=== PATIENT | female | born 1945 | race Caucasian/White ===

== ENCOUNTER 2016-03-13 10:53 | Observation (INO) | payer MEDICARE, OTHER ==
[~2016-03-13] VITALS: Ht 172.7 cm; Wt 63.2 kg
[~2016-03-13 10:53] MED LIST: BISA10SU8 PR; CALTCHW4 PO; CLOT10; DOCU50SY2 PO; FLEEENE3 RE; FOLI1 PO; LORTA5 PO; MAGN1SOL2 PO; MECL-62 PO; MILKSUS5; NYST100010 TOP; OXYB5TAB PO; PREPCRE RECTAL; PROM25TA5 PO; TRAM50TA PO; VITA250L PO; ZOFR4TAB3 SL; [UNRECOGNIZED DRUG - CODE] PO
[2016-03-13 10:59] VITALS: BP 122/58; PULSE 67; RESP 16; TEMP 98; O2SAT 95
--- NOTE | 2016-03-13 11:12 | PD ---
HPI Chief Complaint: Altered Mental Status Time Seen by Provider: 11:11 Travel History International Travel<30 days: No Contact w/Intl Traveler<30days: No Traveled to known affect area: No History of Present Illness HPI 70-year-old female brought in by ambulance from a local nursing facility, with history of Alzheimer's disease, has had a notable change in mental status. Both daughters came in with the patient who state that several days ago the patient was up and functioning, going to meals, and active, despite her baseline dementia. Patient states 2 days ago she did not want to get out of bed, had a fever, and did not want to eat or drink at that time. Patient has not been complaining of any pain. She has no cough, no vomiting, diarrhea, or complaints of abdominal pain. Labs were performed yesterday which I reviewed, showing no significant white blood cell count, but she did have an obvious urinary tract infection. It is unclear whether she has been treated for this. Patient does have dementia and is unsure why she is here. Patient has multiple allergies including amitriptyline, codeine, contrast dye, Novocain , iohexol, pentazocine, and procaine. PFSH Past Medical History Arthritis: Yes Blood Disorders: No Cancer: Yes (LUNG CANCER 1980s) Diabetes: Yes Diminished Hearing: No Diverticulitis: Yes (IN PAST) Deep Vein Thrombosis: Yes Gastrointestinal Disorders: Yes (CHRONIC CONSTIPATION ) Kidney Stones: Yes Musculoskeletal: Yes (TORN R GLUTEAL MUSCLE, R HAMSTRING STRAIN ) Menopausal: Yes Past Surgical History Abdominal Surgery: Yes (COLON RESECTION) Appendectomy: Yes Section: Yes Cholecystectomy: Yes Gynecologic Surgery: Yes Hysterectomy: Yes Thoracic Surgery: Yes (LEFT UPPER LUNG LOBECTOMY) Tonsillectomy: Yes Social History Alcohol Use: Yes (WINE OCCASSIONALLY) Tobacco Use: No Substance Use: No Allergies-Medications (Allergen,Severity, Reaction): Coded Allergies: Amitriptyline (Verified Allergy, Severe, 01/09/14) DISORIENTATION Codeine (Verified Allergy, Severe, Nausea/Vomiting, 01/09/14) VOMITING, DIZZY Dye, Prep (Verified Allergy, Severe, Hives, 01/09/14) "CONSTRAST DYE" Pentazocine (Verified Allergy, Severe, 01/09/14) DISORIENTATION Procaine (Verified Allergy, Severe, 01/09/14) INCREASED HR, HIVES Iohexol (OMNIPAQUE) (Unverified Allergy, Unknown, 01/09/14) Uncoded Allergies: CODIENE,VOMITING - DIZZY:CONSTRAST DYE,NOVACAIN >HR,HIVES (Allergy, Unknown , 11/13/02) NKA (Allergy, Unknown, 11/13/02) Reported Meds & Prescriptions Reported Meds & Active Scripts Active Reported Magic Mouthwash Adult Liq (Multi-Ingredient Mouthwash/Gargle) 120 Ml Susp 5 Ml SWISH-SWAL ACHS Each 5 mL contains: Nystatin 200,000 units, Diphenhydramine 4.25 mg, Viscous Lidocaine 10 mg, Henry syrup 0.8 mL Enulose Liq (Lactulose (Encephalopathy) Liq) 10 Gm/15 Ml Soln 15 Ml Nortriptyline (Nortriptyline HCl) 25 Mg Cap 25 Mg PO HS Miralax Powder (Polyethylene Glycol 3350 Powder) 17 Gm Powd 17 Gm PO DAILY Mix and dissolve one measuring cap-ful (17 grams) in water or juice. Calcium 600+D (Calcium Carbonate-Cholecalciferol) 600-800 Mg-Unit Tab 1 Tab PO BID Citrate of Magnesia Liq (Magnesium Citrate) 300 Ml Liq 300 Ml PO DIRECTED Bisac-Evac Supp (Bisacodyl) 10 Mg Supp 10 Mg RECTAL DAILY PRN Milk of Magnesia Liq (Magnesium Hydroxide) 400 Mg/5 Ml Susp 30 Ml PO DAILY PRN Docusate Sodium 100 Mg Cap 100 Mg PO BID Preparation H Topical ([place]-Gteuxngcccrbl-Xeumxbtd Topical) 1-0.25-14.4-15 % Cre 1 Applic RECTAL QID PRN Vitamin B-12 (Cyanocobalamin) 500 Mcg Tab 500 Mcg PO DAILY Nystatin Topical 100,000 unit/gm Oint 1 Applic TOPICAL Q12HR Meclizine 25 (Meclizine HCl) 25 Mg Tab 1 Tab PO DAILY Vesicare (Solifenacin) 5 Mg Tab 5 Mg PO DAILY Folic Acid 5 Mg Cap 1 Mg PO DAILY Ondansetron (Ondansetron HCl) 4 Mg Tab Tramadol (Tramadol HCl) 50 Mg Tab 50 Mg PO Q6H PRN Hydrocodone-Acetaminophen 5-325 mg Tab 1 Tab PO Q6H PRN Review of Systems ROS Limitations: Altered Mental Status, Other: (dementia.) Except as stated in HPI: all other systems reviewed are Neg General / Constitutional: No: Fever Eyes: No: Visual changes HENT: No: Headaches Cardiovascular: No: Chest Pain or Discomfort Respiratory: No: Shortness of Breath Gastrointestinal: No: Abdominal Pain Genitourinary: No: Dysuria Musculoskeletal: No: Pain Skin: No Rash Neurologic: No: Weakness Psychiatric: No: Depression Endocrine: No: Polydipsia Hematologic/Lymphatic: No: Easy Bruising Physical Exam Narrative GENERAL: Patient is alert and in no acute distress. SKIN: Warm and dry. Patient is normal color. A poor turgor, With tenting noted. HEAD: Atraumatic. Normocephalic. EYES: Pupils equal and round. No scleral icterus. No injection or drainage. ENT: No nasal bleeding or discharge. Mucous membranes pink and very dry. Tongue is dry and appears erythematous. No obvious signs of thrush. Airway is patent. NECK: Trachea midline. No JVD. Supple nontender. CARDIOVASCULAR: Regular rate and rhythm. No murmurs appreciated. RESPIRATORY: No accessory muscle use. Clear to auscultation. Breath sounds equal bilaterally. GASTROINTESTINAL: Abdomen soft, non-tender, nondistended. Hepatic and splenic margins not palpable. MUSCULOSKELETAL: Extremities without clubbing, cyanosis, or edema. No obvious deformities. NEUROLOGICAL: Awake and alert. No obvious cranial nerve deficits. Motor grossly within normal limits. Five out of 5 muscle strength in the arms and legs. Normal speech. PSYCHIATRIC: Appropriate mood and affect; insight and judgment normal. Data Data Last Documented VS Vital Signs Date Time Temp Pulse Resp B/P Pulse Ox O2 Delivery O2 Flow Rate FiO2 03/13/16 11:30 68 20 125/60 94 Room Air 03/13/16 10:59 98.0 Orders Electrocardiogram (03/13/16 11:22) Complete Blood Count With Diff (03/13/16 11:22) Comprehensive Metabolic Panel (03/13/16 11:22) Thyroid Stimulating Hormone (03/13/16 11:22) Chest, Single Ap (03/13/16 11:22) Blood Glucose (03/13/16 11:22) Ecg Monitoring (03/13/16 11:22) Iv Access Insert/Monitor (03/13/16 11:22) Oximetry (03/13/16 11:22) Ceftriaxone Inj (Rocephin Inj) (03/13/16 11:30) Sodium Chloride 0.9% Flush (Ns Flush) (03/13/16 11:30) Sodium Chlor 0.9% 1000 Ml Inj (Ns 1000 M (03/13/16 11:22) Diet Regular Basic (03/13/16 Lunch) Ct Brain W/O Iv Contrast(Rout) (03/13/16 11:32) Acetamin-Hydrocod 325-5 Mg (Frost 5-325 (03/13/16 13:15) Sodium Chlor 0.9% 1000 Ml Inj (Ns 1000 M (03/13/16 13:45) Admit Order (Ed Use Only) (03/13/16 14:26) Labs Laboratory Tests Test 03/13/16 11:50 White Blood Count 5.8 TH/MM3 Red Blood Count 4.04 MIL/MM3 Hemoglobin 13.2 GM/DL Hematocrit 39.8 % Mean Corpuscular Volume 98.6 FL Mean Corpuscular Hemoglobin 32.6 PG Mean Corpuscular Hemoglobin 33.1 % Concent Red Cell Distribution Width 14.8 % Platelet Count 85 TH/MM3 Mean Platelet Volume 9.2 FL Neutrophils (%) (Auto) 69.6 % Lymphocytes (%) (Auto) 13.6 % Monocytes (%) (Auto) 13.1 % Eosinophils (%) (Auto) 3.3 % Basophils (%) (Auto) 0.4 % Neutrophils # (Auto) 4.1 TH/MM3 Lymphocytes # (Auto) 0.8 TH/MM3 Monocytes # (Auto) 0.8 TH/MM3 Eosinophils # (Auto) 0.2 TH/MM3 Basophils # (Auto) 0.0 TH/MM3 CBC Comment AUTO DIFF Differential Total Cells 100 Counted Neutrophils % (Manual) 75 % Band Neutrophils % 7 % Lymphocytes % 10 % Monocytes % 6 % Eosinophils % 2 % Neutrophils # (Manual) 4.8 TH/MM3 Differential Comment FINAL DIFF MANUAL Platelet Estimate LOW Platelet Morphology Comment NORMAL Red Cell Morphology Comment NORMAL Sodium Level 134 MEQ/L Potassium Level 5.0 MEQ/L Chloride Level 101 MEQ/L Carbon Dioxide Level 25.4 MEQ/L Anion Gap 8 MEQ/L Blood Urea Nitrogen 14 MG/DL Creatinine 0.96 MG/DL Estimat Glomerular Filtration 57 ML/MIN Rate Random Glucose 97 MG/DL Calcium Level 8.6 MG/DL Total Bilirubin 0.8 MG/DL Aspartate Amino Transf 64 U/L (AST/SGOT) Alanine Aminotransferase 33 U/L (ALT/SGPT) Alkaline Phosphatase 63 U/L Total Protein 8.2 GM/DL Albumin 2.8 GM/DL Thyroid Stimulating Hormone 4.480 uIU/ML 3rd Gen [facility] Medical Decision Making Medical Screen Exam Complete: Yes Emergency Medical Condition: Yes Medical Record Reviewed: Yes Differential Diagnosis Change in mental status. Intracranial bleed. Electrolyte imbalance. Dehydration. Urinary tract infection. Urosepsis. Renal insufficiency. Narrative Course Patient is felt to be medically stable at time of exam. CT of the head and chest x-ray is ordered. EKG is ordered. Labs ordered including CBC, CMP, TSH, but no urinalysis as I know she has a UTI. This was performed yesterday. Culture is pending. IV access was obtained patient is given 1000 mL's normal saline bolus. Patient is given 1 g Rocephin IV. Regular soft diet is ordered. Patient did improve after her first liter of normal saline bolus, in terms of her overall demeanor. Patient was able to be fed some ice cream, but could not eat anything significant. Patient is monitored here in the department and a second bolus of normal saline 1000 mL was given. CBC is essentially unremarkable without significant leukocytosis, CMP is normal , TSH is slightly elevated. Due to the patient's overall weakness and change in mental status, I feel she should be brought in for observation. Call was placed to Dr. Carreon her PCP who will admit the patient to observation status, and she will continue to be treated for her UTI and observed. Diagnosis Primary Impression: UTI (urinary tract infection) Qualified Code: N30.00 - Acute cystitis without hematuria Additional Impressions: Dehydration Weak Admitting Information Admitting Physician Requests: Observation Zaid Delgadillo Mar 13, 2016 11:12
[2016-03-13] MEDS ORDERED: SODIUM CHLOR 0.9% 1000 ML INJ 1,000 ML IV SCH (11:22)
[2016-03-13 11:30] VITALS: BP 125/60; PULSE 68; RESP 20; O2SAT 94
[2016-03-13] MEDS ORDERED: SODIUM CHLORIDE 0.9% FLUSH 5 ML FLUSH IVF PRN (11:30)
[2016-03-13] MEDS ORDERED: cefTRIAXone INJ 1,000 MG in SODIUM CHLORIDE 0.9% INJ 100 ML IV ONE (11:30)
[2016-03-13 12:22] LABS: AUTOMATED NEUTROPHIL # 4.1 TH/MM3 (1.8-7.7); BASOPHIL % 0.4 % (0.0-2.0); EOSINOPHIL # 0.2 TH/MM3 (0-0.4); EOSINOPHIL % 3.3 % (0.0-4.0); HEMATOCRIT 39.8 % (35.0-46.0); LYMPH % 13.6 % (9.0-44.0); LYMPHOCYTE # 0.8 TH/MM3 (1.0-4.8); MEAN CELL VOLUME 98.6 FL (80.0-100.0); MEAN CORPUSCULAR HEMOGLOBIN 32.6 PG (27.0-34.0); MEAN CORPUSCULAR HGB CONC 33.1 % (32.0-36.0); MONO % 13.1 % (0.0-8.0); NEUT % 69.6 % (16.0-70.0); PLATELET COUNT 85 TH/MM3 (150-450); RED BLOOD COUNT 4.04 MIL/MM3 (4.00-5.30); RED CELL DISTRIBUTION WIDTH 14.8 % (11.6-17.2); WHITE BLOOD COUNT 5.8 TH/MM3 (4.0-11.0)
--- NOTE | 2016-03-13 12:27 | RADRPT ---
EXAM DATE/TIME: 03/13/2016 11:57 [facility] COMPARISON: No previous studies available for comparison. INDICATIONS : Altered mental status. RADIATION DOSE: 56.77 CTDIvol (mGy) MEDICAL HISTORY : Carcinoma, lung. Diabetes mellitus type 2. Deep venous thrombosis. SURGICAL HISTORY : Tonsillectomy. Lobectomy. ENCOUNTER: Initial ACUITY: 1 day PAIN SCALE: Non-responsive LOCATION: cranial TECHNIQUE: Multiple contiguous axial images were obtained of the head. Using automated exposure control and adj ustment of the mA and/or kV according to patient size, radiation dose was kept as low as reasonably a chievable to obtain optimal diagnostic quality images. FINDINGS: Compare January 2014. No acute intracranial hemorrhage, mass or midline shift. No hydrocephalus. Sta ble remote lacunar infarct left basal ganglia. Numerous lucencies in the calvarium most characteristi c of myeloma or metastatic disease. CONCLUSION: 1. No acute intracranial abnormalities. Multiple small lytic changes in the calvarium most characteri stic of myeloma or metastatic disease. Chicho Anderson MD on March 13, 2016 at 12:22 Board Certified Radiologist. This report was verified electronically.
[2016-03-13 12:28] LABS: HEMO FLAGS AUTO DIFF
--- NOTE | 2016-03-13 12:31 | RADRPT ---
EXAM DATE/TIME: 03/13/2016 11:25 [facility] COMPARISON: No previous studies available for comparison. INDICATIONS : Fever, cough MEDICAL HISTORY : Renal calculi. Diverticulitis. SURGICAL HISTORY : Cholecystectomy. Hysterectomy. ENCOUNTER: Initial ACUITY: 3 days PAIN SCORE: Non-responsive. LOCATION: Bilateral chest FINDINGS: A single view of the chest demonstrates minimal basilar atelectasis or infiltrate. No significant eff usion. No pneumothorax. Surgical clips left hilar region. CONCLUSION: 1. Mild basilar density bilaterally. Findings most characteristic of atelectasis versus early broncho pneumonia. Chicho Anderson MD on March 13, 2016 at 12:27 Board Certified Radiologist. This report was verified electronically.
[2016-03-13 12:49] LABS: ALKALINE PHOSPHATASE 63 U/L (45-117); ALT (GPT) 33 U/L (10-53); ANION GAP 8 MEQ/L (5-15); AST (GOT) 64 U/L (15-37); BICARBONATE 25.4 MEQ/L (21.0-32.0); CHLORIDE 101 MEQ/L (98-107); GLOMERULAR FILTRATION RATE 57 ML/MIN (>89); SODIUM (NA) 134 MEQ/L (136-145); TOTAL BILIRUBIN ADULT 0.8 MG/DL (0.2-1.0)
[2016-03-13 12:51] LABS: BLOOD UREA NITROGEN 14 MG/DL (7-18)
[2016-03-13] MEDS ORDERED: ACETAMINOPHEN/HYDROcodone 325 MG/5 MG TAB PO ONE (13:15)
[2016-03-13 13:30] LABS: BANDS 7 % (0-6); EOSINOPHILS 2 % (0-4); NEUTROPHIL # MANUAL DIFF 4.8 TH/MM3 (1.8-7.7); PLATELET ESTIMATE SMEAR LOW (NORMAL); PLATELET MORPHOLOGY NORMAL (NORMAL); POLYS (SEG NEUTROPHILS) 75 % (16-70); SCAN/DIFF FINAL DIFF MANUAL; WBC DIFF SAMPLE 100
[2016-03-13] MEDS ORDERED: SODIUM CHLOR 0.9% 1000 ML INJ 1,000 ML IV ONE (13:45)
[2016-03-13] MEDS ORDERED: FOLI5CAP PO (14:00)
[2016-03-13] MEDS ORDERED: MECL1TAB42 PO (14:00)
[2016-03-13] MEDS ORDERED: HYDR-3516 PO (14:00)
[2016-03-13] MEDS ORDERED: VESI5TAB PO (14:00)
[2016-03-13] MEDS ORDERED: ONDA1TAB16 (14:00)
[2016-03-13] MEDS ORDERED: TRAM50TA PO (14:00)
[2016-03-13] MEDS ORDERED: MILKSUS PO (14:16)
[2016-03-13] MEDS ORDERED: NORT25CA PO (14:16)
[2016-03-13] MEDS ORDERED: DOCU100C PO (14:16)
[2016-03-13] MEDS ORDERED: MAGN1SOL2 PO (14:16)
[2016-03-13] MEDS ORDERED: VITA500T4 PO (14:16)
[2016-03-13] MEDS ORDERED: CALC1TAB37 PO (14:16)
[2016-03-13] MEDS ORDERED: PREPCRE RECTAL (14:16)
[2016-03-13] MEDS ORDERED: NYST100084 TOPICAL (14:16)
[2016-03-13] MEDS ORDERED: BISA10R RECTAL (14:16)
[2016-03-13] MEDS ORDERED: LACT10SO47 (14:16)
[2016-03-13] MEDS ORDERED: MAGICADU2 SWISH-SWAL (14:16)
[2016-03-13] MEDS ORDERED: MIRA33504 PO (14:16)
[2016-03-13] MEDS ORDERED: SODIUM CHLORIDE 0.9% FLUSH 5 ML FLUSH FLUSH PRN (15:00)
[2016-03-13] MEDS ORDERED: BISACODYL 10 MG SUPP RECTAL PRN (15:00)
[2016-03-13] MEDS ORDERED: ONDANSETRON HCL 4 MG/2 ML VIAL IVP PRN (15:00)
[2016-03-13] MEDS ORDERED: PROCHLORPERAZINE 25 MG SUPP PR PRN (15:00)
[2016-03-13] MEDS ORDERED: MAGNESIUM HYDROXIDE SUSP 30 ML CUP PO PRN (15:00)
[2016-03-13] MEDS ORDERED: traMADol HCL 50 MG TAB PO PRN (15:00)
[2016-03-13] MEDS ORDERED: SENNOSIDES 8.6 MG TAB PO PRN (15:00)
[2016-03-13] MEDS ORDERED: ACETAMINOPHEN 325 MG TAB PO PRN (15:00)
[2016-03-13] MEDS ORDERED: NALOXONE HCL 0.4 MG/ML AMP IV PRN (15:00)
[2016-03-13] MEDS ORDERED: ACETAMINOPHEN/HYDROcodone 325 MG/5 MG TAB PO PRN (15:00)
[2016-03-13] MEDS ORDERED: ENALAPRILAT 2.5 MG/2 ML VIAL IV PUSH PRN (15:15)
[2016-03-13] MEDS ORDERED: cloNIDine HCL 0.1 MG TAB PO PRN (15:15)
[2016-03-13] MEDS ORDERED: ENOXAPARIN SODIUM 40 MG/0.4 ML SYRINGE SQ SCH (15:30)
[2016-03-13] MEDS ORDERED: PREPARATION H RECTAL PRN (16:00)
[2016-03-13] MEDS: NYSTAT/DIPHENHY/LIDO MOUTHWASH (Adult) 120ML SWISH-SWAL SCH (16:34)
[2016-03-13] MEDS: SODIUM CHLOR 0.9% 1000 ML INJ 1,000 ML IV SCH (16:34)
[2016-03-13 18:50] VITALS: BP 145/64; PULSE 72; RESP 16; O2SAT 97
--- NOTE | 2016-03-13 22:20 | EKG ---
Date Performed: 03/13/2016 Time Performed: 12:21:42 PTAGE: 70 years EKG: Sinus rhythm PATTERN CONSISTENT WITH POSSIBLE PULMONARY DISEASE LEFT ANTERIOR FASCICULAR BLOCK MINIMAL VOLTAGE CR ITERIA FOR LVH, CONSIDER NORMAL VARIANT ABNORMAL ECG PREVIOUS TRACING : 04/20/2015 07.51 Since previous tracing, no significant change noted DOCTOR: Anival Orellana Interpretating Date/Time 03/13/2016 22:18:26
[2016-03-14] VITALS (9 sets, daily range): BP systolic 121–158; BP diastolic 57–85; PULSE 62–95; RESP 16–20; TEMP 97.2–98.9; O2SAT 93–98
[2016-03-14] MEDS: DOCUSATE SODIUM 100 MG CAP PO SCH ×3 (01:10→21:15)
[2016-03-14] MEDS: NYSTAT/DIPHENHY/LIDO MOUTHWASH (Adult) 120ML SWISH-SWAL SCH ×5 (01:24→21:15)
[2016-03-14] MEDS: NYSTATIN 100,000 U/GM OINT 15 GM TUBE TOPICAL SCH ×3 (01:26→21:15)
[2016-03-14] MEDS: SODIUM CHLORIDE 0.9% FLUSH 5 ML FLUSH FLUSH SCH ×3 (01:29→21:00)
[2016-03-14] MEDS: SODIUM CHLOR 0.9% 1000 ML INJ 1,000 ML IV SCH ×2 (02:00→21:15)
[2016-03-14] MEDS: LEVOTHYROXINE SODIUM 25 MCG TAB PO SCH (06:11)
[2016-03-14 08:12] LABS: AUTOMATED NEUTROPHIL # 1.4 TH/MM3 (1.8-7.7); BASOPHIL % 0.6 % (0.0-2.0); EOSINOPHIL # 0.2 TH/MM3 (0-0.4); EOSINOPHIL % 7.7 % (0.0-4.0); HEMATOCRIT 32.7 % (35.0-46.0); LYMPH % 29.5 % (9.0-44.0); LYMPHOCYTE # 0.8 TH/MM3 (1.0-4.8); MEAN CELL VOLUME 98.2 FL (80.0-100.0); MEAN CORPUSCULAR HGB CONC 33.6 % (32.0-36.0); NEUT % 50.2 % (16.0-70.0); PLATELET COUNT 61 TH/MM3 (150-450); RED BLOOD COUNT 3.33 MIL/MM3 (4.00-5.30); RED CELL DISTRIBUTION WIDTH 14.9 % (11.6-17.2); WHITE BLOOD COUNT 2.7 TH/MM3 (4.0-11.0)
[2016-03-14 08:13] LABS: HEMO FLAGS AUTO DIFF
--- NOTE | 2016-03-14 08:19 | HHI.HP ---
History of Present Illness Primary Care Physician Ramone Carreon MD Admission Diagnosis UTI/Alterered Mental Status/Dehydration Diagnoses: (1) Weak (2) UTI (urinary tract infection) (3) Dehydration History of Present Illness 70 y CF, HARI RESIDENT. LAST WEEK GENERAL DECLINE NOTED. TREATED FOR UTI. PT BECAME WEAKER THE LAST COUPLE OF DAYS. PT STARTED POCKETING PILLS AND HAD MINIMAL PO INTAKE DUE TO LETHARGY. I SPOKE WITH THE DGTR AND SHE REQUESTED AGGRESSIVE TX AND I THUS TRANSFERRED HER TO THE MAIN [facility]. SHE HAS NOW BEEN TRANSFERRED TO [facility]. PT APPEARS ALMOST TO BASELINE NOW. C/O HARSH COUGH AND STILL VERY WEAK. Review of Systems ROS Limitations: Clinical Condition, Altered Mental Status, Uncooperative, Hearing Impaired, Poor Historian Other - 14 POINT ROS EXCEPT ABOVE. Past Family Social History Allergies: Coded Allergies: Amitriptyline (Verified Allergy, Severe, 01/09/14) DISORIENTATION Codeine (Verified Allergy, Severe, Nausea/Vomiting, 01/09/14) VOMITING, DIZZY Dye, Prep (Verified Allergy, Severe, Hives, 01/09/14) "CONSTRAST DYE" Pentazocine (Verified Allergy, Severe, 01/09/14) DISORIENTATION Procaine (Verified Allergy, Severe, 01/09/14) INCREASED HR, HIVES Iohexol (OMNIPAQUE) (Unverified Allergy, Unknown, 01/09/14) Uncoded Allergies: CODIENE,VOMITING - DIZZY:CONSTRAST DYE,NOVACAIN >HR,HIVES (Allergy, Unknown , 11/13/02) NKA (Allergy, Unknown, 11/13/02) Past Medical History ALZ LUNG CA HTN Past Surgical History NC Reported Medications Current Medications Medications (Trade) Dose Ordered Sig/Brian Route Start Time Stop Time Status Last Admin (Dulcolax Supp) 10 mg DAILY PRN RECTAL 03/13/16 15:00 (Colace) 100 mg BID PO 03/13/16 21:00 03/14/16 01:10 ([place] 5-325 Mg) 1 tab Q6H PRN PO 03/13/16 15:00 03/14/16 01:21 (Milk Of Magnesia Liq) 30 ml DAILY PRN PO 03/13/16 15:00 03/14/16 01:22 (Mycostatin Oint) 1 applic Q12HR TOPICAL 03/13/16 21:00 03/14/16 01:26 (Magic Mouthwash Adult Liq) 5 ml ACHS SWISH-SWAL 03/13/16 16:00 03/14/16 06:11 (Miralax) 17 gm DAILY PO 03/14/16 09:00 (Ultram) 50 mg Q6H PRN PO 03/13/16 15:00 Patient Own Medication PT OWN MED: PREPARATION H CR... QID PRN RECTAL 03/13/16 16:00 Hold (NS 1000 ml Inj) 1,000 ml @ 100 mls/hr Q10H IV 03/13/16 16:00 03/13/16 16:34 (NS Flush) 2 ml UNSCH PRN FLUSH 03/13/16 15:00 (NS Flush) 2 ml BID FLUSH 03/13/16 21:00 03/14/16 01:29 (Tylenol) 650 mg Q4H PRN PO 03/13/16 15:00 (Zofran Inj) 4 mg Q6H PRN IVP 03/13/16 15:00 (Compazine Supp) 25 mg Q12H PRN WV 03/13/16 15:00 (Senokot) 17.2 mg Q12H PRN PO 03/13/16 15:00 (Lovenox Inj) 40 mg Q24H SQ 03/13/16 15:30 03/13/16 16:33 (Narcan Inj) 0.4 mg UNSCH PRN IV 03/13/16 15:00 (Catapres) 0.1 mg Q6H PRN PO 03/13/16 15:15 Enalaprilat 2.5 mg 2.5 mg Q6H PRN IV PUSH 03/13/16 15:15 (Rocephin Inj/NS Inj) 100 ml @ 200 mls/hr Q24H IV 03/14/16 12:00 (Synthroid) 25 mcg DAILY@0600 PO 03/14/16 06:00 03/14/16 06:11 Family History NC Social History SNF RES; NO E/T/D; DISABLED Physical Exam Vital Signs Vital Signs Date Time Temp Pulse Resp B/P Pulse Ox O2 Delivery O2 Flow Rate FiO2 03/14/16 04:12 97.9 88 16 130/81 93 03/14/16 00:12 98.9 73 18 158/73 94 03/13/16 18:50 72 16 145/64 97 Room Air 03/13/16 11:30 68 20 125/60 94 Room Air 03/13/16 10:59 98.0 67 16 122/58 95 Physical Exam GENERAL: This is a chronically ill appearing, CF, in no apparent distress. SKIN: No rashes, ecchymoses or lesions. Cool and dry. HEAD: Atraumatic. Normocephalic. No temporal or scalp tenderness. EYES: Pupils equal round and reactive. Extraocular motions intact. No scleral icterus. No injection or drainage. ENT: Nose without bleeding, purulent drainage or septal hematoma. Throat without erythema, tonsillar hypertrophy or exudate. Uvula midline. Airway patent. NECK: Trachea midline. No JVD or lymphadenopathy. Supple, nontender, no meningeal signs. CARDIOVASCULAR: Regular rate and rhythm without murmurs, gallops, or rubs. RESPIRATORY: Clear to auscultation. Breath sounds equal bilaterally. No wheezes , rales, or rhonchi. However very harsh congested cough, poor effort. GASTROINTESTINAL: Abdomen soft, non-tender, nondistended. No hepato-splenomegaly , or palpable masses. No guarding. MUSCULOSKELETAL: Extremities without clubbing, cyanosis, or edema. No joint tenderness, effusion, or edema noted. No calf tenderness. Negative Homans sign bilaterally. NEUROLOGICAL: Awake and alert x 2. Cranial nerves II through XII intact. Motor and sensory grossly within normal limits. 1 out of 5 muscle strength in all muscle groups. Normal speech. Laboratory Laboratory Tests Test 03/13/16 11:50 White Blood Count 5.8 Red Blood Count 4.04 Hemoglobin 13.2 Hematocrit 39.8 Mean Corpuscular Volume 98.6 Mean Corpuscular Hemoglobin 32.6 Mean Corpuscular Hemoglobin 33.1 Concent Red Cell Distribution Width 14.8 Platelet Count 85 Mean Platelet Volume 9.2 Neutrophils (%) (Auto) 69.6 Lymphocytes (%) (Auto) 13.6 Monocytes (%) (Auto) 13.1 Eosinophils (%) (Auto) 3.3 Basophils (%) (Auto) 0.4 Neutrophils # (Auto) 4.1 Lymphocytes # (Auto) 0.8 Monocytes # (Auto) 0.8 Eosinophils # (Auto) 0.2 Basophils # (Auto) 0.0 CBC Comment AUTO DIFF Differential Total Cells 100 Counted Neutrophils % (Manual) 75 Band Neutrophils % 7 Lymphocytes % 10 Monocytes % 6 Eosinophils % 2 Neutrophils # (Manual) 4.8 Differential Comment FINAL DIFF MANUAL Platelet Estimate LOW Platelet Morphology Comment NORMAL Red Cell Morphology Comment NORMAL Sodium Level 134 Potassium Level 5.0 Chloride Level 101 Carbon Dioxide Level 25.4 Anion Gap 8 Blood Urea Nitrogen 14 Creatinine 0.96 Estimat Glomerular Filtration 57 Rate Random Glucose 97 Calcium Level 8.6 Total Bilirubin 0.8 Aspartate Amino Transf 64 (AST/SGOT) Alanine Aminotransferase 33 (ALT/SGPT) Alkaline Phosphatase 63 Total Protein 8.2 Albumin 2.8 Thyroid Stimulating Hormone 4.480 3rd Gen Result Diagram: 03/13/16 1150 03/13/16 1150 Imaging Last [address] 03/13/16 1132 Signed Impressions: Service Date/Time: Sunday, March 13, 2016 11:57 - CONCLUSION: 1. No acute intracranial abnormalities. Multiple small lytic changes in the calvarium most characteristic of myeloma or metastatic disease. Chicho Anderson MD Chest X-Ray 03/13/16 1122 Signed Impressions: Service Date/Time: Sunday, March 13, 2016 11:25 - CONCLUSION: 1. Mild basilar density bilaterally. Findings most characteristic of atelectasis versus early bronchopneumonia. Chicho Anderson MD Assessment and Plan Assessment and Plan AMS METABOLIC ENCEPHALOPATHY DUE TO UTI AND HCAP QUESTION METASTATIC DISEASE NOTED ON HEAD CT, ALSO PRESENT ON OLD HEAD CT'S, HX LUNG CA HCAP UTI LUNG CA WITH HISTORY OF LOBECTOMY DVT HISTORY THROMBOCYTOPENIA MODERATE DEMENTIA SNF RESIDENT PLAN: IV ABX IVF MRI BRAIN CAROTID DOPPLERS ONCOLOGY CONSULT STOP LOVENOX DUE TO THROMBOCYTOPENIA SCD'S TEDS AM LABS FOLLOWUP BLOOD AND URINE CULTURES OBS ADMIT Problem Qualifiers (1) UTI (urinary tract infection): Qualified Code: N30.00 - Acute cystitis without hematuria Ramone Carreon MD Mar 14, 2016 08:19
[2016-03-14 08:21] LABS: POTASSIUM 3.8 MEQ/L (3.5-5.1)
[2016-03-14] MEDS: POLYETHYLENE GLYCOL 17 GM PKG PO SCH (08:22)
[2016-03-14 08:24] LABS: BICARBONATE 24.7 MEQ/L (21.0-32.0)
[2016-03-14 08:38] LABS: SCAN/DIFF AUTO DIFF CONFIRMED
[2016-03-14] MEDS: RESP: ALBUTEROL 2.5 MG/IPRATROPIUM 0.5 MG NEB (SCH) NEB ×3 (11:18→19:49)
[2016-03-14] MEDS ORDERED: GADODIAMIDE PF 287 MG/ML 10 ML VIAL (for RAD MRI) IV ONE (13:00)
--- NOTE | 2016-03-14 13:30 | RADHPO ---
EXAM DATE/TIME: 03/14/2016 12:57 [facility] COMPARISON: No previous studies available for comparison. INDICATIONS : Altered mental status. Abnormal CT. CONTRAST: 10 cc Omniscan (gadodiamide) IV MEDICAL HISTORY : Metastatic, brain. Carcinoma, lung. SURGICAL HISTORY : Lobectomy. ENCOUNTER: Initial ACUITY: 1 day PAIN SCORE: 0/10 LOCATION: cranial TECHNIQUE: Multiplanar, multisequence MRI of the brain was performed both prior to and following the administrat ion of paramagnetic contrast. FINDINGS: There is mild central and cortical atrophy with dilatation of ventricular and sulcal spaces. There i s no parenchymal hemorrhage, mass lesion or extra-axial fluid collections appreciated. Posterior fossa is unremarkable. The calvarium is abnormal with minimal focal areas of abnormal marrow in the diploic space suspicious for process such as myeloma. Bony probable metastatic disease could have a similar appearance altho ugh ought to be much less likely. CONCLUSION: Abnormal calvarium as described above. Shaka Griffin MD FACR on March 14, 2016 at 13:26 Board Certified Radiologist. This report was verified electronically.
[2016-03-14] MEDS: AZITHROMYCIN INJ 500 MG in SODIUM CHLOR 0.9% 250 ML INJ 250 ML IV SCH (13:39)
[2016-03-14] MEDS: cefTRIAXone INJ 1,000 MG in SODIUM CHLORIDE 0.9% INJ 100 ML IV SCH (13:40)
--- NOTE | 2016-03-14 14:19 | RADHPO ---
EXAM DATE/TIME: 03/14/2016 13:39 [facility] COMPARISON: No previous studies available for comparison. INDICATIONS : Cerebrovascular accident. MEDICAL HISTORY : Deep venous thrombosis. Lung cancer. Arthritis. Radiation therapy. Chemotherapy. SURGICAL HISTORY : Tonsillectomy. Cholecystectomy. Appendectomy. Left upper lung lobectomy. Bowel resection. se ction. Hysterectomy. ENCOUNTER: Initial ACUITY: 1 day PAIN SCORE: 0/10 LOCATION: Bilateral neck PEAK SYSTOLIC VELOCITIES (cm/sec): ICA/CCA RATIO: Right: 1.2 Left: 1.0 ICA: Right: 100 Left: 78 CCA: Right: 86 Left: 81 ECA: Right: 151 Left: 124 VERTEBRAL: Right: 55 antegrade Left: 42 antegrade Elevated flow velocities and ICA/CCA ratios have been found to correlate with increased degrees of vessel stenosis, calculated as percentage of diameter relative to a normal segment of distal ICA/CCA FINDINGS: RIGHT CAROTID: There is no evidence for a hemodynamically significant carotid stenosis. Minimal int imal hyperplasia is present with scattered calcific plaque. LEFT CAROTID: There is no evidence for a hemodynamically significant carotid stenosis. Minimal inti mal hyperplasia is present with scattered calcific plaque. VERTEBRAL ARTERIES: Flow is antegrade in both vertebral arteries. MISCELLANEOUS: There are no ancillary masses or adenopathy. CONCLUSION: Negative examination for a hemodynamically significant carotid stenosis. Shaka Griffin MD FACR on March 14, 2016 at 14:17 Board Certified Radiologist. This report was verified electronically.
[2016-03-14 16:30] LABS: BLOOD, URINE SMALL (NEG); GLUCOSE,URINE NEG (NEG); KETONE, URINE NEG (NEG); NITRITE,URINE NEG (NEG)
[2016-03-14 16:35] LABS: METHOD OF COLLECTION CATH; URINE COLOR YELLOW (YELLW/STRAW)
[2016-03-14 16:36] LABS: COMMENT (UR) CATH-CULT NOT IND; CULTURE IF INDICATED CATH CULTURE NOT IND; RBC, URINE 0-3 /hpf (0-3); SQUAMOUS EPITHELIAL CELL URINE 0-5 /hpf (0-5)
--- NOTE | 2016-03-14 21:30 | MB ---
cc: ELIN YIP,RAMONE DATE OF CONSULTATION 03/14/16 DATE OF [address] Ramone Carreon CHIEF COMPLAINT Dr. Carreon requested consultation for Mrs. Wilson regarding radiographic abnormality of bone suggestive of metastatic disease. HISTORY OF PRESENT ILLNESS Mrs. Wilson is a pleasantly demented 70-year-old woman, resident of [facility]. She was stable until recent urinary tract infection and developed cognitive decline at her baseline functioning. She has Alzheimer's dementia. She has very observant and caring family members who noted a difference and requested a more impressive management and thus was transferred to the hospital for evaluation. She had mental status changes that were reported as pocketing pills, decreased intake, lethargy. Overall, she seems to have declined rather quickly to the observation of her family members. The patient was unable to give history. The history is supplemented by her daughter and granddaughter who were present at the consultation. She has a history of lung cancer from the . She has had definitive resection of the lung cancer in the left lung and radiation to a lesion in the brain. This explains CT scan lung images where the right lung appears hyperinflated as opposed to the left lung. Review of the imaging study show a CT scan that shows no acute intracranial abnormality with multiple small lytic changes in the calvarium, was noted most characteristic in the upper part of the calvarium, numerous lucencies. This was also seen in the brain MRI that was also negative for intracranial abnormality. There was mild central cortical atrophy, dilatation of ventricle and focal spaces. There is no hemorrhage, mass, lesion or extra fluid collection. The calvarium is also abnormal. Interestingly, review of the CT scan images from May 19, 2015 shows no bony lesions. Her bone mineral density from 2012 was normal. Daughter supplemented that this cranial abnormality has been noted in the past. She has chronic alopecia at the top part of her head. REVIEW OF SYSTEMS The patient denies any pain. Denies any headaches or vision changes. She does not have any nausea. She believes that she is "nuts" and laughs. She gets full quickly. However, she will always have room for chocolate. She had recent urinary tract infection and is being treated. She has arthritis of the ankles. She has had no fevers, no chills. No night sweats. She has known history of WILSON and subsequent liver cirrhosis and hypersplenism. The rest of her review of systems is negative. PAST MEDICAL HISTORY History of lung cancer. Previous cranial radiation. Alzheimer's dementia. Hypertension. Nonalcoholic steatohepatitis/cirrhosis. Hypersplenism, chronic thrombocytopenia. Hypothyroidism. PAST SURGICAL HISTORY Past surgical history, lung lobectomy. Cranial radiation. SOCIAL HISTORY She lives in a correction facility, has many relatives and friends that come to visit. She did not smoke. She used to drink a glass of wine per day, not currently. FAMILY HISTORY Family history is noncontributory. ALLERGIES ALLERGIES TO MULTIPLE MEDICATIONS, AMITRIPTYLINE, CODEINE, CONTRAST DYE, NOVOCAINE, PENTAZOCINE. MEDICATIONS Current medications: 1. Ceftriaxone. 2. Albuterol. 3. Azithromycin. 4. MiraLax. 5. Synthroid. 6. Colace. 7. Magic mouth wash. 8. [place]. 9. Milk of magnesia. PHYSICAL EXAMINATION VITAL SIGNS: Temperature 98.0 heart rate 95, respiratory rate 19, blood pressure 128/68. GENERAL: Mrs. Wilson is a well-developed pleasant elderly woman with alopecia who is wearing a soft turban. HEENT: Her pupils are round, reactive to light and accommodation. She has some hyperemia of skin, possible rosacea. Neck is supple with no adenopathy. LUNGS: Lungs are clear to auscultation. CARDIOVASCULAR: Exam reveals normal rate, rhythm. ABDOMEN: Abdomen is benign. Spleen tip is palpable. No tenderness. EXTREMITIES: Lower extremity with tenderness in the ankle secondary to arthritis. No swelling. Good pulses. LABORATORY DATA Significant for mild pancytopenia with hemoglobin of 11.0, white blood cell count 2.7, platelet count of 61,000, BUN 11, creatinine 0.69, protein 2.8. Serum protein electrophoresis ___ 2001 was negative. No M spike was detected. ASSESSMENT/PLAN Mrs. Wilson is a 70-year-old woman with history of lung cancer resected and post prophylactic cranial radiation. It is not clear what exactly was radiated in the . She has known cranial changes that has been noted by her primary physician in the past. This does not represent recurrence of her lung cancer, since the she has been in remission. I had a lengthy discussion with the patient and her daughter and granddaughter present at the consultation further workup at this point. I find that the radiographic findings are unlikely to represent multiple myeloma. She has no anemia and normal renal function. Furthermore a previous serum protein electrophoresis shows no evidence of monoclonal protein from 2001. I can repeat the serum protein electrophoresis, however, I expect that ___% of patient's age 70 would have a presence of monoclonal protein. This would not necessarily signify the diagnosis of a plasma cell dyscrasia such as a multiple myeloma. We discussed the bone marrow biopsy to evaluate the thrombocytopenia. We discussed thrombocytopenia is likely due to her WILSON and the hypersplenism that results from her liver disease. Review of the electronic medical record of the progressive nature of her thrombocytopenia. She is asymptomatic and has no bleeding. Her last platelet count that was normal was in 2005. Her platelet count has been progressively declining then. This is consistent with the changes that are seen in the liver. Her CT scan of the abdomen shows an abnormal liver back in 2012. At that time the spleen was normal. Most recent CT scan of the abdomen shows grossly abnormal liver and enlarged spleen consistent with the findings of hypersplenism. In the end Mrs. Wilson and her daughter was elected to defer any workup for underlying malignancy. They are accepting the fact that she has a gradual decline in functioning as the natural history of her dementia. They are content with the treatment of acute processes such as the urinary tract infection. May have a better understanding of the nature and the pathophysiology causing the thrombocytopenia. The calvarium and the changes on the radiographic findings are chronic and likely do not represent cancer. They have elected to defer any work up understanding the nature of their refusal and the risk and benefit of workup. Their questions were answered to their satisfaction. Elin Yip MD RAD/EO /6:11 PM /8:47 PM
[2016-03-15] VITALS: BP 152/61; PULSE 70; RESP 18; TEMP 97.2; O2SAT 96
[2016-03-15 04:00] VITALS: BP 145/66; PULSE 70; RESP 16; TEMP 98.8; O2SAT 94
[2016-03-15] MEDS: LEVOTHYROXINE SODIUM 25 MCG TAB PO SCH (06:27)
[2016-03-15] MEDS: NYSTAT/DIPHENHY/LIDO MOUTHWASH (Adult) 120ML SWISH-SWAL SCH ×2 (06:28→08:39)
[2016-03-15 07:02] LABS: AUTOMATED NEUTROPHIL # 2.3 TH/MM3 (1.8-7.7); BASOPHIL % 0.3 % (0.0-2.0); EOSINOPHIL # 0.2 TH/MM3 (0-0.4); EOSINOPHIL % 5.4 % (0.0-4.0); HEMATOCRIT 34.3 % (35.0-46.0); LYMPH % 25.2 % (9.0-44.0); LYMPHOCYTE # 0.9 TH/MM3 (1.0-4.8); MEAN CELL VOLUME 96.3 FL (80.0-100.0); MEAN CORPUSCULAR HEMOGLOBIN 32.4 PG (27.0-34.0); MEAN CORPUSCULAR HGB CONC 33.7 % (32.0-36.0); MONO % 8.9 % (0.0-8.0); NEUT % 60.2 % (16.0-70.0); PLATELET COUNT 68 TH/MM3 (150-450); RED BLOOD COUNT 3.56 MIL/MM3 (4.00-5.30); RED CELL DISTRIBUTION WIDTH 14.3 % (11.6-17.2); WHITE BLOOD COUNT 3.7 TH/MM3 (4.0-11.0)
[2016-03-15 07:09] LABS: POTASSIUM 3.9 MEQ/L (3.5-5.1)
[2016-03-15 07:11] LABS: HEMO FLAGS AUTO DIFF
[2016-03-15 07:15] LABS: BICARBONATE 24.7 MEQ/L (21.0-32.0)
[2016-03-15] MEDS: RESP: ALBUTEROL 2.5 MG/IPRATROPIUM 0.5 MG NEB (SCH) NEB ×2 (07:41→11:23)
[2016-03-15 07:58] LABS: SCAN/DIFF AUTO DIFF CONFIRMED
[2016-03-15] MEDS: SODIUM CHLORIDE 0.9% FLUSH 5 ML FLUSH FLUSH SCH (08:38)
[2016-03-15] MEDS: POLYETHYLENE GLYCOL 17 GM PKG PO SCH (08:39)
[2016-03-15] MEDS: NYSTATIN 100,000 U/GM OINT 15 GM TUBE TOPICAL SCH (08:39)
[2016-03-15] MEDS: DOCUSATE SODIUM 100 MG CAP PO SCH (08:39)
[2016-03-15] MEDS: AZITHROMYCIN INJ 500 MG in SODIUM CHLOR 0.9% 250 ML INJ 250 ML IV SCH (08:40)
[2016-03-15 08:57] VITALS: BP 139/59; PULSE 72; RESP 15; TEMP 96.4; O2SAT 95
--- NOTE | 2016-03-15 10:44 | HHI.PR ---
Subjective Remarks Patient was originally transferred down from [facility] to [place] for management. Patient originally seen by Dr. Carreon, the patient's primary medical doctor. He notified us yesterday that he does not see patients in [place] and asked [facility] to assume care of the patient today. Patient was seen today with Dr. Sandhu. Patient appears to be alert. She answering questions appropriately. Records reviewed and because of some abnormal findings with MRI , laboratory studies patient had evaluation done by oncology. Oncology spoke with the patient and family and it was indicated that family did not want to pursue any further workup at this time. Patient appears to be clinically stable at this time. Will plan discharge back to nursing facility for continued management by Dr. Carreon Objective Vitals Vital Signs Date Time Temp Pulse Resp B/P Pulse Ox O2 Delivery O2 Flow Rate FiO2 03/15/16 08:57 96.4 72 15 139/59 95 03/15/16 04:00 98.8 70 16 145/66 94 03/15/16 00:00 97.2 70 18 152/61 96 03/14/16 20:00 97.5 82 20 133/60 98 03/14/16 19:55 70 03/14/16 19:49 94 21 03/14/16 16:20 98.0 95 19 128/68 95 03/14/16 12:00 97.6 62 19 125/85 93 03/14/16 11:22 95 21 I/O 03/14/16 03/14/16 03/14/16 03/15/16 03/15/16 03/15/16 07:00 15:00 23:00 07:00 15:00 23:00 Intake Total 573 ml 700 ml 645 ml 364 ml Output Total 1 ml Balance 573 ml 700 ml 644 ml 364 ml Intake Oral 240 ml 120 ml IV Total 573 ml 700 ml 405 ml 244 ml Output Stool Total 1 ml # Voids 1 2 3 # Bowel Movements 1 0 Result Diagram: 03/15/1662003/15/16620 Objective Remarks GENERAL: Well-developed, well-nourished, in no acute distress. alert HEENT: Head is normocephalic without any lesions or masses noted. Facial features are symmetric. Eyes: Extraocular muscles are intact. Conjunctivae were clear. NECK: Supple without any masses. Trachea midline no deviation. No JVD, CARDIAC: Regular rhythm, regular rate. S1/S2 are heard. No murmurs gallops or rubs. LUNGS: Clear to auscultation bilaterally. No wheeze, rhonchi or rales. No use of accessory muscles on inspiration or expiration. ABDOMEN: Soft, nontender. Nondistended. Bowel sounds heard in all 4 quadrants. No organomegaly or masses. Negative rebound, negative guarding EXTREMITIES: No edema, pulses are equal bilaterally. No cyanosis or clubbing NEUROLOGY: Mood and affect appear appropriate. Cranial nerves II through XII grossly intact. Moving all extremities, speech is clear Urinary Catheter: No Vascular Central Line Catheter: No A/P Assessment and Plan Altered mental status secondary to metabolic encephalopathy in a patient with dementia and underlying healthcare associated pneumonia, Improved Mentation appears to have improved. She is acting appropriate today and seems to be alert Healthcare associated pneumonia Patient started on Rocephin and Zithromax Patient clinically improved we'll continue the above antibiotics Continue duo nebs Pancytopenia (leukopenia, anemia, thrombocytopenia), ? Myeloproliferative disease Medical hematology/oncology was consulted for recommendations Records indicate that family did not want to pursue any active workup CT and MRI finding of possible metastatic findings of the head Patient history of lung cancer status post lobectomy Oncology indicate that radiology will finding does not represent recurrence of lung cancer. And unlikely represent multiple myeloma DVT prevention Sequential compression devices Written by Sacha Howell PA-C, acting as scribe for Dr. Sandhu on 03/15/16 at 1310. The documentation accurately reflects the work and decisions performed face-to- face by Dr. Sandhu on 03/15/16 at 1310. Discharge Planning Discharge back to custodial facility today Activity: Ad giovana. Diet: Healthy heart diet Medications per medication reconciliation Follow-up with primary medical doctor in one week Sacha Howell Mar 15, 2016 10:44
[2016-03-15] MEDS ORDERED: CEFT500T3 PO (10:46)
--- NOTE | 2016-03-15 10:46 | HHI.DCPOC ---
Discharge Care Plan Diagnosis: (1) Weak (2) Dehydration (3) Healthcare-associated pneumonia Goals to Promote Your Health * To prevent worsening of your condition and complications * To maintain your health at the optimal level Directions to Meet Your Goals Take your medications as prescribed Follow your dietary instruction Follow activity as directed Keep your appointments as scheduled Take your immunizations and boosters as scheduled If your symptoms worsen call your PCP, if no PCP go to Urgent Care Center or Emergency Room Smoking is Dangerous to Your Health. Avoid second hand smoke Call the 24-hour hour crisis hotline for domestic abuse at Sacha Howell Mar 15, 2016 10:46
[2016-03-15] MEDS: cefTRIAXone INJ 1,000 MG in SODIUM CHLORIDE 0.9% INJ 100 ML IV SCH (13:39)
[2016-03-15 15:02] VITALS: BP 124/61; PULSE 66; RESP 15; TEMP 98.1; O2SAT 98
== END 2016-03-15 16:02 ==
LOC: NEPC 10:53 → NEDA 14:28 → PH3B 23:44
PROVIDERS: ADMIT Family Medicine; ATTEND Family Medicine
DX: N30.00 Acute cystitis without hematuria (principal); G93.41 Metabolic encephalopathy; E86.0 Dehydration; J18.9 Pneumonia, unspecified organism; C34.90 Malignant neoplasm of unspecified part of unspecified bronchus or lung; C90.00 Multiple myeloma not having achieved remission; D69.6 Thrombocytopenia, unspecified; D73.1 Hypersplenism; F02.80 Dementia in other diseases classified elsewhere, unspecified severity, without behavioral disturbance, psychotic disturbance, mood disturbance, and anxiety; G30.9 Alzheimer's disease, unspecified; E11.9 Type 2 diabetes mellitus without complications; E03.9 Hypothyroidism, unspecified; I10 Essential (primary) hypertension; K74.60 Unspecified cirrhosis of liver; K75.81 Nonalcoholic steatohepatitis (NASH); M19.90 Unspecified osteoarthritis, unspecified site; L65.9 Nonscarring hair loss, unspecified; Z86.718 Personal history of other venous thrombosis and embolism; Z87.442 Personal history of urinary calculi; Z88.5 Allergy status to narcotic agent; Z90.2 Acquired absence of lung [part of]; Y95 Nosocomial condition
CPT/HCPCS: 70450; 70553; 71010; 80048; 80053; 81001; 83880; 84443; 85007; 85025; 85027; 93005; 93880; 94640; 94664; 96361; 96365; 97163; 97165; 99285; A9579; G0378; G8987; G8988; G8989; J0456; J0696; J1650; J7030; J7050